=== PATIENT | male | born 1945 | race Caucasian/White ===

== ENCOUNTER → 2020-09-24 | Outpatient (CLI) | payer MEDICARE | LOC: CT 09-16 11:30 → OPSV 09-16 13:00 | DX: C19 Malignant neoplasm of rectosigmoid junction (principal); C20 Malignant neoplasm of rectum; E86.0 Dehydration; K76.0 Fatty (change of) liver, not elsewhere classified | CPT/HCPCS: 96360; 96361; J7030; Q9967 ==

== ENCOUNTER → 2021-02-11 | Outpatient (CLI) | payer MEDICARE | LOC: KOH-I 15:00 | DX: S42.122A Displaced fracture of acromial process, left shoulder, initial encounter for closed fracture (principal); M89.9 Disorder of bone, unspecified | CPT/HCPCS: 73200 ==

== ENCOUNTER → 2021-03-24 | Outpatient (CLI) | payer MEDICARE | LOC: OPSV 09:55 → CT 10:30 | DX: Z12.5 Encounter for screening for malignant neoplasm of prostate (principal); C19 Malignant neoplasm of rectosigmoid junction; C20 Malignant neoplasm of rectum; E86.0 Dehydration; N18.30 Chronic kidney disease, stage 3 unspecified; K76.0 Fatty (change of) liver, not elsewhere classified | CPT/HCPCS: 96360; 96361; J7030; Q9965 ==